=== PATIENT | male | born 1960 | race Caucasian/White ===

== ENCOUNTER → 2020-11-29 | Outpatient (CLI) | payer BC ==
[~2020-11-29] MED LIST: ALPR.25T PO; DIPH25CA79 PO; METF-399 PO; MTP25TSR PO; OMEP20TA33 PO; PARO10TA3 PO
--- NOTE | 2020-11-29 08:31 | Diagnostic Imaging Report ---
PROCEDURE: US Hepatic (Liver). TECHNIQUE: Multiple real-time grayscale images were obtained over the right upper quadrant in various projections. INDICATION: Elevated liver function test. Liver is normal in size 16.5 cm. There is diffuse increased echogenicity throughout the liver consistent with hepatic steatosis. Portal vein is patent and shows normal direction of flow. No liver mass is seen. Gallbladder is surgically absent. No biliary duct dilatation is seen. The pancreas is obscured by bowel gas. Aorta appears to be of normal caliber proximally. Mid and distal aorta were obscured by bowel gas. IVC is obscured. Right kidney is without calculi or hydronephrosis. There is no ascites. IMPRESSION: 1. Hepatic steatosis. 2. Status post cholecystectomy. Dictated by: Dictated on workstation # [id number]
== END ==
LOC: RAD 07:00
PROVIDERS: ATTEND Internal Medicine
DX: K76.0 Fatty (change of) liver, not elsewhere classified (principal); R94.5 Abnormal results of liver function studies; Z90.49 Acquired absence of other specified parts of digestive tract
CPT/HCPCS: 76705

== ENCOUNTER 2022-01-31 08:47 | Outpatient (CLI) | payer BC ==
[2022-01-31 09:15] VITALS: BP 158/87
[2022-01-31] MEDS ORDERED: ONDANSETRON 4 MG/2 ML (SDV) Z0FRAN IV PRN (09:15)
[2022-01-31] MEDS ORDERED: EPINEPHrine INJECTION 1 MG/ML AMP IM PRN (09:15)
[2022-01-31] MEDS ORDERED: ACETAMINOPHEN 500 MG TAB (TYLENOL) PO PRN (09:15)
[2022-01-31] MEDS ORDERED: diphenhydrAMINE 50 MG/ML INJ (BENADRYL) IV PRN (09:15)
[2022-01-31] MEDS ORDERED: BEBTELOVIMAB 175 MG/2 ML VIAL IV ONE (09:15)
[2022-01-31 09:55] VITALS: BP 140/78
== END 2022-01-31 09:57 ==
LOC: INFUSION 08:47
PROVIDERS: ATTEND Nurse Practitioner Family
DX: U07.1 COVID-19 (principal)